=== PATIENT | male | born 1945 | race Caucasian/White ===

== ENCOUNTER 2020-12-29 11:49 | Inpatient (IN) | payer OTHER, MEDICAID, SELFPAY ==
[~2020-12-29] VITALS: Ht 170.2 cm; Wt 55.8 kg
--- NOTE | 2020-12-29 11:53 | NUR ---
PATIENT W/C ASSISTED TO BED 3
[2020-12-29 11:58] VITALS: BP 101/78
--- NOTE | 2020-12-29 12:07 | NUR ---
77 Y/O MALE BIB FAMILY CAREGIVER C/O GENERALIZED WEAKNESS, LETHARGY, N/V AND INCONTINENCE X1DAY. PER FAMILY, PT WAS FOUND AT HOME "NEARLY UNRESPONSIVE". PT WENT TO ED AT [facility] ON 12/22/20 FOR VERTIGO, HYPERGLYCEMIA AND WAS TREATED FOR BOTH. PT IS A/O X3. BLOOD SUGAR ON ARRIVAL 322. PT DENIES PAIN AT THIS TIME. NIH 0. PMH: DM NKA
--- NOTE | 2020-12-29 12:14 | NUR ---
Dr. Lane at pt bedside for further evaluation.
[2020-12-29] MEDS ORDERED: NACL 0.9% 2,000 ML IV ONE (12:20)
--- NOTE | 2020-12-29 12:26 | NUR ---
EMT at pt bedside for EKG.
--- NOTE | 2020-12-29 12:28 | NUR ---
Pt taken to CT via [facility].
--- NOTE | 2020-12-29 12:36 | NUR ---
Labs and cultures collected, gave to tech. Rebeka
[2020-12-29 12:38] LABS: BASOPHILS # (AUTO) 0.1 K/uL (0.00-0.22); BASOPHILS % (AUTO) 0.4 % (0.0-2.0); HEMATOCRIT 42.3 % (36-52); HEMOGLOBIN 14.3 g/dL (12.0-18.0); LYMPHOCYTES # (AUTO) 1.4 K/uL (2.0-11.5); LYMPHOCYTES % (AUTO) 7.1 % (20.5-51.1); MEAN CORPUSCULAR HEMOGLOBIN 33 pg (27-31); MEAN CORPUSCULAR HGB CONC 34 g/dL (33-37); MEAN CORPUSCULAR VOLUME 95.8 fL (80-94); MONOCYTES # (AUTO) 0.9 K/uL (0.8-1.0); MONOCYTES % (AUTO) 4.6 % (1.7-9.3); NEUTROPHILS # (AUTO) 17.8 K/uL (1.8-7.7); NEUTROPHILS % (AUTO) 87.9 % (42.2-75.2); PLATELET COUNT (AUTO) 299 K/uL (140-450); RED BLOOD CELL COUNT(AUTO) 4.42 MIL/uL (4.20-6.10); RED CELL DISTRIBUTION WIDTH 13.1 % (11.6-13.7); WHITE BLOOD COUNT (AUTO) 20.2 K/uL (4.8-10.8)
--- NOTE | 2020-12-29 12:41 | NUR ---
Pt brought back to ER bed 3 via mendel.
--- NOTE | 2020-12-29 12:43 | NUR ---
Spoke with pt family Juan for pt updates.
--- NOTE | 2020-12-29 12:46 | NUR ---
motorsports technician at pt bedside.
[2020-12-29 12:47] LABS: PROTHROMBIN TIME 9.6 secs (10.8-13.4)
[2020-12-29] MEDS ORDERED: PIPERACILLIN/TAZOBACTAM 3.375 GM in DEXTROSE 5% 50 ML IV ONE (12:50)
[2020-12-29] MEDS ORDERED: VANCOMYCIN PER PHARMACY MC PRN (12:50)
[2020-12-29] MEDS ORDERED: NACL 0.9% 1,000 ML IV ONE (12:50)
[2020-12-29] MEDS ORDERED: VANCOMYCIN 1GM/DEXT 5% PREMIX 200 ML IV ONE (12:50)
[2020-12-29] MEDS ORDERED: TRAM50TA1 PO (12:55)
[2020-12-29] MEDS ORDERED: MECL-303 PO (12:55)
[2020-12-29] MEDS ORDERED: METF500T PO (12:55)
[2020-12-29] MEDS ORDERED: PIPERACILLIN/TAZOBACTAM 3.375 GM VIAL IV ONE ×2 (12:58→21:55)
[2020-12-29 13:02] LABS: ALBUMIN 3.7 g/dL (3.4-5.0); ANION GAP 7.5 (8-16); ASPARTATE AMINOTRANSFERASE 16 U/L (15-37); CARBON DIOXIDE 30.9 mmol/L (21-32); CHLORIDE 98 mmol/L (98-107); CREATININE 1.2 mg/dL (0.6-1.3); GLUCOSE 324 mg/dL (74-106); MAGNESIUM 2.3 mg/dL (1.8-2.4); PHOSPHORUS 3.6 mg/dL (2.5-4.9); POTASSIUM 4.4 mmol/L (3.5-5.1); SODIUM SERUM 132 mmol/L (136-145); THYROID STIMULATING HORMONE 0.81 uIU/mL (0.34-3.74); UREA NITROGEN, BLOOD 15 mg/dL (7-18)
[2020-12-29] MEDS ORDERED: VANCOMYCIN 1,000 MG in DEXTROSE 5% 250 ML IV SCH (13:15)
--- NOTE | 2020-12-29 13:16 | NUR ---
Pt taken to CT via [facility].
[2020-12-29 13:21] LABS: SALICYLATE < 2.8 mg/dL (2.8-20.0)
--- NOTE | 2020-12-29 13:23 | NUR ---
Pt brought back from CT via [facility].
[2020-12-29] MEDS ORDERED: VANCOMYCIN 1,000 MG VIAL ONE (13:36)
[2020-12-29 13:41] LABS: ACETAMINOPHEN < 0.5 ug/ml (10-30)
[2020-12-29] MEDS ORDERED: DICYCLOMINE HCL LIQUID 10 MG/5 ML UDC ONE (14:12)
[2020-12-29] MEDS ORDERED: ALUMINUM HYD/MAG/SIMETHICONE 30 ML UDC ONE (14:12)
[2020-12-29] MEDS ORDERED: LIDOCAINE VISCOUS 2% 20 ML UDC ONE (14:12)
[2020-12-29] MEDS: DICYCLOMINE HCL LIQUID 20 MG, ALUMINUM HYD/MAG/SIMETHICONE 30 ML, LIDOCAINE VISCOUS 2% ... PO ONE ×6 (14:14→14:17)
--- NOTE | 2020-12-29 14:15 | NUR ---
16F SCHULTZ CATHETER PLACED AT THIS TIME WITH MODERATE AMOUNT OF YELLOW URINE REMOVED.
[2020-12-29] MEDS ORDERED: ACETAMINOPHEN 325 MG TAB PO PRN (14:40)
[2020-12-29] MEDS ORDERED: guaiFENesin DM 200/20 MG-10 ML 10 ML UDC PO PRN (14:40)
[2020-12-29] MEDS ORDERED: ZOLPIDEM 5 MG TAB PO PRN (14:40)
[2020-12-29] MEDS ORDERED: DOCUSATE SODIUM 100 MG GELCAP PO PRN (14:40)
[2020-12-29] MEDS ORDERED: ONDANSETRON 4 MG/2 ML VIAL IM/IVP PRN (14:40)
[2020-12-29] MEDS ORDERED: HYDROcodone/APAP 7.5/325 MG 1 TAB PO PRN (14:40)
[2020-12-29] MEDS ORDERED: POTASSIUM CHLORIDE 10 MEQ TABER PO PRN (14:40)
[2020-12-29] MEDS ORDERED: DEXTROSE 50% 50 ML SYR IVP PRN (14:45)
[2020-12-29] MEDS: NACL 0.9% 1,000 ML IV SCH (15:05)
[2020-12-29 15:20] LABS: CHOL/HDL RATIO 5.2 (1-4.5); FREE T4 (FREE THYROXINE) 0.99 ng/dL (0.76-1.46); MAGNESIUM 2.3 mg/dL (1.8-2.4); PHOSPHORUS 3.6 mg/dL (2.5-4.9); THYROID STIMULATING HORMONE 0.83 uIU/mL (0.34-3.74)
--- NOTE | 2020-12-29 15:39 | NUR ---
Collected UA sample via little using sterile technique, sent to lab.
--- NOTE | 2020-12-29 15:54 | NUR ---
Emptied 1000mL of clear yellow urine, no sediment noted.
--- NOTE | 2020-12-29 15:58 | NUR ---
NEERAJ PCR COLLECTED AND WALKED TO LAB.
[2020-12-29] MEDS: BLOOD GLUCOSE MONITORING 1 DEV DEV FS SCH ×2 (16:50→21:00)
[2020-12-29] MEDS: INSULIN LISPRO SLIDING SCALE 100 UNITS/ML VIAL SUBQ PRN (16:58)
[2020-12-29 17:49] LABS: APPEARANCE,URINE CLEAR (CLEAR); BILIRUBIN,URINE NEGATIVE (NEGATIVE); BLOOD, URINE NEGATIVE (NEGATIVE); COLOR,URINE YELLOW (YELLOW); LEUKOCYTE ESTERASE ,URINE NEGATIVE (NEGATIVE); NITRITE, URINE NEGATIVE (NEGATIVE); UGLUCOSE 3+ (NEGATIVE)
--- NOTE | 2020-12-29 17:53 | NUR ---
Emptied 700mL of clear odorless yellow urine, no sediment noted.
[2020-12-29 18:05] LABS: BARBITURATE, URINE NEGATIVE ng/ml (NEG <=200); BENZODIAZEPINE, URINE NEGATIVE ng/mL (NEG <=200); CANNABINOID, URINE NEGATIVE ng/mL (NEG <=50); COCAINE, URINE NEGATIVE ng/mL (NEG <=300); OPIATE, URINE NEGATIVE ng/mL (NEG <=2000); PHENCYCLIDINE SCREEN,URINE NEGATIVE ng/mL (NEG <=25)
--- NOTE | 2020-12-29 19:13 | NUR ---
Gave report to DANNI Thao, transfer of care at this time.
--- NOTE | 2020-12-29 19:20 | NUR ---
PATIENT VOMITTED PREVIOUSLY TAKEN FOOD, CLEANED AND DRESSED, IV WAS REMOVED AND PUT ON HIS RAC G 20 PATENT AND INFUSING WELL.
--- NOTE | 2020-12-29 19:30 | NUR ---
Patient will be admitted to care of DR JASMINA DENNISON. Admited to TELEMETRY. Will go to [id number]. Belongings list completed. Report to RAMON RAZO.
--- NOTE | 2020-12-29 20:00 | NUR ---
REPORT GIVEN TO RAMON RAZO.
[2020-12-29 20:10] VITALS: BP 134/65
--- NOTE | 2020-12-29 20:10 | NUR ---
RECEIVED PATIENT FROM ER NURSE VIA [facility] FOR CONTINUITY OF CARE. ALERT AND ABLE TO MAKE NEEDS KNOWN. RESPIRATIONS EVEN, UNLABORED. NO S/S RESPIRATORY DISTRESS. S1/S2 AUSCULTATED. SKIN ASSESSMENT COMPLETED. SKIN WARM, DRY AND INTACT. IV SITE TO RIGHT AC 20G PATENT/INTACT, INFUSING FLUIDS WELL. NO C/O PAIN. NO S/S ACUTE DISTRESS. ABDOMEN SOFT, NONTENDER, NONDISTENDED. BOWEL SOUNDS ACTIVE x4 QUADRANTS. PATIENT IS INCONTINENT. SCHULTZ CATHETER PATENT WITH YELLOW URINE DRAINING TO GRAVITY. MRSA SCREEN COMPLETED. PATIENT ORIENTED TO ROOM/STAFF AND CALL LIGHT. PLAN OF CARE DISCUSSED. SAFETY PRECAUTIONS IN PLACE. ISOLATION PRECAUTIONS OBSERVED BY ALL STAFF. CALL LIGHT WITHIN REACH AT ALL TIMES.
[2020-12-29] MEDS: PIPERACILLIN/TAZOBACTAM 3.375 GM in DEXTROSE 5% 50 ML IV SCH (21:00)
--- NOTE | 2020-12-29 21:30 | NUR ---
DUE MEDS GIVEN. PATIENT RESTING COMFORTABLY IN BED WATCHING TV. NO C/O PAIN. NO S/S ACUTE DISTRESS. CALL LIGHT WITHIN REACH AT ALL TIMES. SAFETY PRECAUTIONS IN PLACE. ISOLATION PRECAUTIONS OBSERVED.
--- NOTE | 2020-12-29 23:00 | NUR ---
CALLED GIRLFRIEND BARBARA ROJAS AND GRANDDAUGHTER DIANA VALERIO PER PATIENT'S REQUEST TO UPDATE THEM ON PATIENT'S CONDITION AND PLAN OF CARE.
[2020-12-30] VITALS: BP 137/74
--- NOTE | 2020-12-30 00:23 | NUR ---
RN MADE MIDNIGHT ROUND, PATIENT WAS CALMLY ASLEEP.
--- NOTE | 2020-12-30 01:00 | NUR ---
MADE ROUNDS. PATIENT IS ASLEEP. NO S/S ACUTE DISTRESS. SAFETY PRECAUTIONS IN PLACE. ISOLATION PRECAUTIONS OBSERVED. CALL LIGHT WITHIN REACH.
--- NOTE | 2020-12-30 03:00 | NUR ---
PATIENT IS ASLEEP. NO S/S ACUTE DISTRESS. CALL LIGHT WITHIN REACH. SAFETY PRECAUTIONS IN PLACE. ISOLATION PRECAUTIONS OBSERVED.
[2020-12-30] MEDS: NACL 0.9% 1,000 ML IV SCH ×2 (03:10→16:26)
[2020-12-30 04:00] VITALS: BP 104/43
[2020-12-30] MEDS ORDERED: PIPERACILLIN/TAZOBACTAM 3.375 GM VIAL IV ONE (04:33)
[2020-12-30] MEDS: PIPERACILLIN/TAZOBACTAM 3.375 GM in DEXTROSE 5% 50 ML IV SCH ×3 (04:34→22:42)
--- NOTE | 2020-12-30 05:00 | NUR ---
DUE MEDS GIVEN. NO C/O PAIN. NO S/S ACUTE DISTRESS. CALL LIGHT WITHIN REACH. SAFETY PRECAUTIONS IN PLACE. ISOLATION PRECAUTIONS OBSERVED.
[2020-12-30] MEDS: BLOOD GLUCOSE MONITORING 1 DEV DEV FS SCH ×4 (06:32→21:00)
[2020-12-30 06:52] LABS: BASOPHILS # (AUTO) 0.1 K/uL (0.00-0.22); BASOPHILS % (AUTO) 0.5 % (0.0-2.0); EOSINOPHILS # (AUTO) 0.1 K/uL (0-0.4); EOSINOPHILS % (AUTO) 0.8 % (0.0-4.0); HEMATOCRIT 36.6 % (36-52); HEMOGLOBIN 12.4 g/dL (12.0-18.0); LYMPHOCYTES # (AUTO) 2.6 K/uL (2.0-11.5); MEAN CORPUSCULAR HEMOGLOBIN 32 pg (27-31); MEAN CORPUSCULAR HGB CONC 34 g/dL (33-37); MEAN CORPUSCULAR VOLUME 95.1 fL (80-94); MONOCYTES # (AUTO) 0.7 K/uL (0.8-1.0); MONOCYTES % (AUTO) 5.4 % (1.7-9.3); NEUTROPHILS # (AUTO) 10.1 K/uL (1.8-7.7); NEUTROPHILS % (AUTO) 74.3 % (42.2-75.2); PLATELET COUNT (AUTO) 260 K/uL (140-450); RED BLOOD CELL COUNT(AUTO) 3.85 MIL/uL (4.20-6.10); RED CELL DISTRIBUTION WIDTH 12.9 % (11.6-13.7); WHITE BLOOD COUNT (AUTO) 13.5 K/uL (4.8-10.8)
[2020-12-30 06:56] LABS: ANION GAP 11.3 (8-16); CARBON DIOXIDE 29.7 mmol/L (21-32); CHLORIDE 102 mmol/L (98-107); GLUCOSE 140 mg/dL (74-106); SODIUM SERUM 139 mmol/L (136-145); UREA NITROGEN, BLOOD 12 mg/dL (7-18)
[2020-12-30 07:07] LABS: T4 (THYROXINE) 7.6 ug/dL (4.5-12.0)
--- NOTE | 2020-12-30 07:15 | NUR ---
ENDORSED PATIENT TO AM SHIFT NURSE FOR CONTINUITY OF CARE.
--- NOTE | 2020-12-30 07:20 | NUR ---
RECEIVED BEDSIDE ENDORSEMENT FROM NIGHTSILFT NURSE FOR CONTINUITY OF CARE.
[2020-12-30 08:00] VITALS: BP 137/70
--- NOTE | 2020-12-30 08:39 | NUR ---
PATIENT HAS BEEN SCREENED AND CATEGORIZED MODERATE NUTRITION RISK. PATIENT WILL BE SEEN WITHIN 3-5 DAYS OF ADMISSION. 01/01/21 01/03/[address]
[2020-12-30] MEDS: PANTOPRAZOLE 40 MG TABEC PO SCH (09:21)
[2020-12-30] MEDS: metFORMIN 500 MG TAB PO SCH (09:22)
[2020-12-30] MEDS: ATORVASTATIN 20 MG TAB PO SCH (09:22)
--- NOTE | 2020-12-30 09:41 | NUR ---
ADMINISTERED PRESCRIBED MEDS PER MD ORDER. PATIENT TOLERATED WELL. MEDICATION EDUCATION PROVIDED. PATIENT VERBALIZED UNDERSTANDING. PATIENT PROVIDED BREAKFAST TRAY, SITTING UPRIGHT IN BED WATCHING TELEVISION. DENIES PAIN, ABLE TO MAKE NEEDS KNOWN. NO SIGNS OF DISTRESS OR DISCOMFORT. LUNG SOUNDS CLEAR, NO EDEMA. SAFETY MEASURES IN PLACE. WILL CONTINUE TO MONITOR.
--- NOTE | 2020-12-30 09:47 | NUR ---
RECEIVED PHONE CALL FROM PATIENT GIRLFRIEND BARBARA. PROVIDED UPDATE, ASSISTED PATIENT W/ ROOM PHONE FOR PERSONAL CALLS.
--- NOTE | 2020-12-30 10:21 | NUR ---
SOCIAL WORK NOTE: Patient's Orientation Unable To Assess Information Provided By DIANA VALERIO - GRANDDAUGHTER Comments SW WAS UNABLE TO MEET PATIENT AT BEDSIDE. SW COMPLETED ASSESSMENT WITH PATIENT'S GRANDDAUGHTER. Router Tender, Realtionship and Phone Number DIANA VALERIO GRANDDAUGHTER [phone] BARBARA ROJAS SIGNIFICANT OTHER [phone] Healthcare Power of Department Operations Manager No Does Patient Have a POLST No Identifying Problems No Social Work Triggers Is A Social Work Consult Needed No Mandate Report Filed No Explanation Of Identifying Problems PATIENT IS A 75-YEAR-OLD MALE ADMITTED FOR GENERAL WEAKNESS AND SEPSIS. PATIENT HAS PMHX OF DIABETES. GRANDDAUGHTER REPORTED NO HX OF MENTAL HEALTH OR SUBSTANCE ABUSE. Admitted From Home Pre-Admission Level Of Functioning Status Independent/Ambulatory Prior Resources/Services Used In Last 12 Months No Prior Resources Used Prior DME No Prior DME Used Dialysis Comments N/A Living Situation Lives Alone Mobile Home Patient Had Caregiver No Home Support No Caregiver Issues Financial Issues No Known Financial Issue Referral To The Financial Counselor Needed No Factors/Needs No D/C Needs Identified Pt/Rep Participated In Discharge Plan Yes Patient/Family Agress With Discharge Plan Yes Discharge Plan Comments TENTATIVE DISCHARGE PLAN IS FOR PATIENT TO RETURN HOME. DC Plan Status Initiated
--- NOTE | 2020-12-30 11:18 | NUR ---
HOURLY ROUNDING PERFORMED. PATIENT SLEEPING IN BED. DENIES PAIN/DISCOMFORT. ADJUSTED THERMOSTAT FOR WARMTH. DISCARDED BREAKFAST TRAY. SAFETY MEASURES IN PLACE. WILL CONTINUE TO MONITOR.
[2020-12-30 12:00] VITALS: BP 130/67
--- NOTE | 2020-12-30 12:05 | NUR ---
ADMINISTERED PRESCRIBED MEDS PER MD ORDER. PATIENT SLEEPING IN BED, DENIES PAIN/DISCOMFORT. SAFETY MEASURES IN PLACE. WILL CONTINUE TO MONITOR.
--- NOTE | 2020-12-30 12:50 | NUR ---
ADMINISTERED PRN INSULIN FOR BLOOD SUGAR 258. PATIENT LUNCH TRAY DELIVERED AND AT BEDSIDE. ASSISTED PATIENT W/ TELEVISION SET UP. SAFETY MEASURES IN PLACE. WILL CONTINUE TO MONITOR
--- NOTE | 2020-12-30 13:02 | NUR ---
DC PLANNIN YRS OLD MALE PATIENT WAS ADMITTED FROM HOME WITH A DX OF GENERAL WEAKNESS ,SEPSIS. PT HAS A HX OF DIABETES. CXR SHOWED RT LUNG BASE INFILTRATES, CT HEAD NO BLEED , CT CHEST SHOWED, CAD ,BILATERAL PULMONARY INFILTRATES. RAPID COVID TEST NEGATIVE, PCR IS PENDING. ADMINISTERED IVF, IV ABX ZOSYN AND CONTINUED HOME MEDS. CONSULTED WITH PULMO . DC PLAN TO GO HOME WHEN STABLE CM TO FOLLOW Addendum: 12/31/20 at 1503 by Luna Little RN DC PLANNING: PT HAS AN ORDER FOR SNF, PT AGREED AND CALLED PT'S GRAND DAUGHTER DIANA [phone] SHE AGREED WELL, SHE WILL BE OK AROUND THE AREA. FAXED TO [facility] , [facility]ATY AND [facility] BARROSO. CM TO FOLLOW Addendum: 01/01/21 at 1058 by Ellen Guaman CM DC FINANCIAL SALES MANAGER: RHEA CERON [facility] IS ABLE TO ACCEPT PATIENT. ROOM 9C. PER RHEA THEY WILL ACCEPT BILL FOR TRANSPORTATION, SHE ASKS THAT WE ARRANGE IT WITH [facility] [phone]. Addendum: 01/01/21 at 1223 by Ellen Guaman CM MAGDA FINANCIAL SALES MANAGER: ARRANGED TRANSPORTATION WITH [facility] [phone]. CORE LAYER MACHINE OPERATOR TIME IS BETWEEN 3:00PM-4:00PM [facility] [phone] ROOM [address]C [address] [place] [address] Addendum: 01/01/21 at 1230 by Ellen Guaman CM MAGDA VELASQUEZ: NOTIFIED DANNI GARCIA AND SPOKE TO PATIENTS GRANDDAUGHTER DIANA TO NOTIFY HER OF DISCHARGE.
--- NOTE | 2020-12-30 14:22 | NUR ---
HOURLY ROUNDING PERFORMED. PATIENT SLEEPING IN BED. VISIBLE RISE AND FALL OF CHEST. DISCARDED REMAINING LUNCH TRAY COMPONENTS. SAFETY MEASURES IN PLACE. WILL CONTINUE TO MONITOR.
[2020-12-30 16:00] VITALS: BP 146/69
--- NOTE | 2020-12-30 17:37 | NUR ---
HOURLY ROUNDING PERFORMED. PATIENT IS RESTING IN BED. VITAL SIGNS OBTAINED, PROVIDED PATIENT W/ CLEAN WARM BLANKETS. DENIES PAIN. SAFETY MEASURES IN PLACE. WILL CONTINUE TO MONITOR.
--- NOTE | 2020-12-30 19:33 | NUR ---
ENDORSED PATIENT TO NIGHTSHIFT NURSE FOR CONTINUITY OF CARE.
--- NOTE | 2020-12-30 19:57 | NUR ---
PATIENT WAS RECEIVED IN BED ALERT AND COHERENT, GF CALLED TO GET AN UPDATE REPORT REGARDING HER BF, EXTENDING HER LOVE TO THE PATIENT.
[2020-12-30 20:00] VITALS: BP 145/74
--- NOTE | 2020-12-30 21:19 | NUR ---
MADE ROUND TO RELAY THE MESSAGE OF PATIENT'S GF, IV HYDRATION FLUID NSS WAS REPLACED WITH NEW BAG.
--- NOTE | 2020-12-30 21:30 | NUR ---
RN DO RANGEL [id number], COVERED WITH REGULAR INSULIN PER SLIDING SCALE., IV ZOSYN 3.375 GMS WAS ADMINISTERED TOLERATING WELL
[2020-12-30] MEDS: INSULIN LISPRO SLIDING SCALE 100 UNITS/ML VIAL SUBQ PRN (22:47)
[2020-12-31] VITALS: BP 112/55
--- NOTE | 2020-12-31 02:24 | NUR ---
RN MADE ROUNDS, PATIENT REQUESTED WARM BLANKET, HE SAID HE FEELS COLD.
[2020-12-31 04:00] VITALS: BP 111/53
[2020-12-31] MEDS: NACL 0.9% 1,000 ML IV SCH ×2 (05:09→16:56)
[2020-12-31] MEDS: PIPERACILLIN/TAZOBACTAM 3.375 GM in DEXTROSE 5% 50 ML IV SCH ×3 (05:10→21:56)
[2020-12-31 06:31] LABS: ANION GAP 10.3 (8-16); CARBON DIOXIDE 29.3 mmol/L (21-32); CHLORIDE 104 mmol/L (98-107); GLUCOSE 126 mg/dL (74-106); POTASSIUM 4.6 mmol/L (3.5-5.1); SODIUM SERUM 139 mmol/L (136-145); UREA NITROGEN, BLOOD 11 mg/dL (7-18)
[2020-12-31 06:32] LABS: BASOPHILS # (AUTO) 0.1 K/uL (0.00-0.22); BASOPHILS % (AUTO) 0.8 % (0.0-2.0); EOSINOPHILS # (AUTO) 0.1 K/uL (0-0.4); EOSINOPHILS % (AUTO) 1.1 % (0.0-4.0); HEMATOCRIT 36.5 % (36-52); HEMOGLOBIN 12.6 g/dL (12.0-18.0); LYMPHOCYTES # (AUTO) 2.3 K/uL (2.0-11.5); LYMPHOCYTES % (AUTO) 21.4 % (20.5-51.1); MEAN CORPUSCULAR HEMOGLOBIN 33 pg (27-31); MEAN CORPUSCULAR HGB CONC 35 g/dL (33-37); MONOCYTES # (AUTO) 0.6 K/uL (0.8-1.0); MONOCYTES % (AUTO) 5.9 % (1.7-9.3); NEUTROPHILS # (AUTO) 7.7 K/uL (1.8-7.7); NEUTROPHILS % (AUTO) 70.8 % (42.2-75.2); PLATELET COUNT (AUTO) 268 K/uL (140-450); RED BLOOD CELL COUNT(AUTO) 3.84 MIL/uL (4.20-6.10); RED CELL DISTRIBUTION WIDTH 13.2 % (11.6-13.7); WHITE BLOOD COUNT (AUTO) 10.9 K/uL (4.8-10.8)
[2020-12-31] MEDS: BLOOD GLUCOSE MONITORING 1 DEV DEV FS SCH ×4 (06:56→21:27)
--- NOTE | 2020-12-31 07:38 | NUR ---
UY=[id number], NO COVERAGE GIVEN. ALL REPORTS AND RECOMMENDATIONS GIVEN, ENDORSED TO IN COMING RN.
--- NOTE | 2020-12-31 07:40 | NUR ---
RECEIVED BEDSIDE ENDORSEMENT FROM NIGHTSCTFT NURSE FOR CONTINUITY OF CARE.
[2020-12-31 08:00] VITALS: BP 154/71
[2020-12-31] MEDS: ATORVASTATIN 20 MG TAB PO SCH (08:26)
[2020-12-31] MEDS: metFORMIN 500 MG TAB PO SCH (08:27)
[2020-12-31] MEDS: PANTOPRAZOLE 40 MG TABEC PO SCH (08:27)
--- NOTE | 2020-12-31 08:33 | NUR ---
ADMINISTERED PRESCRIBED MEDS PER MD ORDER. PATIENT TOLERATED WELL. MEDICATION EDUCATION PROVIDED. PATIENT VERBALIZED UNDERSTANDING. PATIENT AWAKE AND ALERT. ABLE TO MAKE NEEDS KNOWN. RESPIRATIONS EVEN AND UNLABORED. NO SIGNS OF DISTRESS. LUNG SOUNDS CLEAR. SAFETY MEASURES IN PLACE. WILL CONTINUE TO MONITOR.
[2020-12-31] MEDS: INSULIN LISPRO SLIDING SCALE 100 UNITS/ML VIAL SUBQ PRN ×3 (12:31→21:29)
--- NOTE | 2020-12-31 12:36 | NUR ---
ADMINISTERED PRN INSULIN FOR BLOOD SUGAR OF 228. PATIENT TOLERATED WELL. LUNCH TRAY DELIVERED AND AT BEDSIDE. PATIENT IS ALERT AND ORIENTED. ABLE TO MAKE NEEDS KNOWN. SAFETY MEASURES IN PLACE. WILL CONTINUE TO MONITOR.
[2020-12-31 16:00] VITALS: BP 137/65
--- NOTE | 2020-12-31 18:10 | NUR ---
PT WAS SEEN FOR DYSPHAGIA. PT W ABLE TO SAFELY SWALLOW MS DIET WITH THIN LIQUID WITHOUT S/S OF ASPIRATION. RECOMMENDATION MS DIET WITH THIN LIQUID
--- NOTE | 2020-12-31 19:26 | NUR ---
BEDSIDE ENDORSEMENT TO NIGHTSHIFT NURSE FOR CONTINUITY OF CARE
--- NOTE | 2020-12-31 19:27 | NUR ---
RECD. RESTING IN BED, COMFORTABLY SLEEPING. EASILY AROUSABLE, A/OX4. RESPIRATION EVEN AND UNLABORED. IV OF NS INFUSING AT 80 ML/HR AT THE LEFT FOREARM G22. F/C PATENT DRAINING CLEAR YELLOW URINE. SAFETY MEASURES ENFORCED. BED IN THE LOWEST POSITION, CALL LIGHT IN REACH. INSTRUCTED TO CALL NURSE WHENEVER NEEDING HELP. MEDICATIONS AND CARE FOR THE SHIFT DISCUSSED. VERBALIZED UNDERSTANDING. DENIES PAIN 0/10.
--- NOTE | 2020-12-31 20:00 | NUR ---
Patient's Plan of Care was discussed and reviewed with ALLOY WEIGHER: YOAV BURCIAGA
--- NOTE | 2020-12-31 21:27 | NUR ---
BLOOD SUGAR CHECKED - 228. SLIDING SCALE COVERAGE GIVEN. ATE 100% OF SNACK FOR THE NIGHT.
--- NOTE | 2021-01-01 | NUR ---
SLEEPING COMFORTABLY IN BED.
--- NOTE | 2021-01-01 02:00 | NUR ---
SLEEPING SUPINE IN BED, WARM BLANKETS GIVEN.
[2021-01-01 04:00] VITALS: BP 125/56
--- NOTE | 2021-01-01 04:00 | NUR ---
RESPIRATION EVEN AND UNLABORED, STILL COMFORTABLY SLEEPING.
[2021-01-01] MEDS: NACL 0.9% 1,000 ML IV SCH (05:10)
[2021-01-01] MEDS: PIPERACILLIN/TAZOBACTAM 3.375 GM in DEXTROSE 5% 50 ML IV SCH ×2 (05:25→12:38)
--- NOTE | 2021-01-01 05:26 | NUR ---
SCHEDULE MEDICATION GIVEN ORDERED. EDUCATION GIVEN, PATIENT VERBALIZED UNDERSTANDING. NO SIGN OF DISTRESS NOTED. PRECAUTION IN PLACE. CALL LIGHT WITHIN REACH. WILL CONTINUE TO MONITOR.
[2021-01-01 06:36] LABS: BASOPHILS # (AUTO) 0.1 K/uL (0.00-0.22); BASOPHILS % (AUTO) 0.6 % (0.0-2.0); EOSINOPHILS # (AUTO) 0.1 K/uL (0-0.4); EOSINOPHILS % (AUTO) 0.7 % (0.0-4.0); HEMATOCRIT 34.4 % (36-52); HEMOGLOBIN 11.7 g/dL (12.0-18.0); LYMPHOCYTES # (AUTO) 1.7 K/uL (2.0-11.5); LYMPHOCYTES % (AUTO) 13.3 % (20.5-51.1); MEAN CORPUSCULAR HEMOGLOBIN 32 pg (27-31); MEAN CORPUSCULAR HGB CONC 34 g/dL (33-37); MEAN CORPUSCULAR VOLUME 94.6 fL (80-94); MONOCYTES # (AUTO) 0.9 K/uL (0.8-1.0); MONOCYTES % (AUTO) 7.2 % (1.7-9.3); NEUTROPHILS # (AUTO) 10.1 K/uL (1.8-7.7); NEUTROPHILS % (AUTO) 78.2 % (42.2-75.2); PLATELET COUNT (AUTO) 256 K/uL (140-450); RED BLOOD CELL COUNT(AUTO) 3.63 MIL/uL (4.20-6.10); RED CELL DISTRIBUTION WIDTH 13.1 % (11.6-13.7)
[2021-01-01] MEDS: BLOOD GLUCOSE MONITORING 1 DEV DEV FS SCH ×2 (06:50→11:29)
[2021-01-01] MEDS: INSULIN LISPRO SLIDING SCALE 100 UNITS/ML VIAL SUBQ PRN ×2 (06:51→11:34)
[2021-01-01 07:13] LABS: ANION GAP 7.9 (8-16); CARBON DIOXIDE 30.5 mmol/L (21-32); CHLORIDE 101 mmol/L (98-107); GLUCOSE 225 mg/dL (74-106); POTASSIUM 4.4 mmol/L (3.5-5.1); SODIUM SERUM 135 mmol/L (136-145); UREA NITROGEN, BLOOD 10 mg/dL (7-18)
--- NOTE | 2021-01-01 07:15 | NUR ---
ENDORSED TO AM SHIFT NURSE FOR CONTINUITY OF CARE.
--- NOTE | 2021-01-01 07:16 | NUR ---
RECEIVED ENDORSEMENT FROM ROTARY PUMP OPERATOR RN PT IS RESTING IN BED NO DISTRESS.
[2021-01-01 08:00] VITALS: BP 122/56
[2021-01-01] MEDS: PANTOPRAZOLE 40 MG TABEC PO SCH (09:31)
[2021-01-01] MEDS: ATORVASTATIN 20 MG TAB PO SCH (09:31)
[2021-01-01] MEDS: metFORMIN 500 MG TAB PO SCH (09:31)
--- NOTE | 2021-01-01 09:40 | NUR ---
SCHEDULED MEDICATIONS GIVEN TOLERATED WELL PT IS DELAYED WITH SLOW TO RESPOND AND MOVE. PT ADMIT WITH GEN WEAK WHICH PERSIST. PT DENIES ANY DISTRESS AT THIS TIME. LUNG SOUNDS DIMINISHED ABD IS FLAT, SOFT AND NONTENDER WITH ACTIVE BS X 4. SKIN INTACT. HAS IV ACCESS TO LEFT FOREARM THAT IS INTACT AND PATENT. REQUIRES ASSISTANCE WITH MOVEMENT. HAS SCHULTZ CATH IN PLACE DRAINING CLEAR YELLOW URINE. SAFETY MEASURES IN PLACE. ALL NEEDS MET AT THIS TIME.
--- NOTE | 2021-01-01 10:32 | NUR ---
RESTING IN BED ALL NEEDS MET.
[2021-01-01] MEDS ORDERED: DOCU-299 PO (11:54)
[2021-01-01] MEDS ORDERED: CEFU500T73 PO (11:54)
[2021-01-01] MEDS ORDERED: LACT-2 (11:54)
[2021-01-01] MEDS ORDERED: ATOR20TA40 PO (11:54)
--- NOTE | 2021-01-01 12:25 | NUR ---
BS 204 4UNITS OF COVERAGE GIVEN PER SLIDING SCALE.
--- NOTE | 2021-01-01 14:40 | NUR ---
PROVISION OF CARE PROVIDED. SCHULTZ CATH REMOVED PER MD ORDER OFFERED URINAL NO URINE AT THIS TIME.
[2021-01-01 14:55] VITALS: BP 122/56
--- NOTE | 2021-01-01 15:30 | NUR ---
PT DISCHARGED AT THIS TIME WITH ALL BELONGINGS AND WITH DISCHARGE INSTRUCTIONS. INSTRUCTIONS GIVEN TO [facility] TAHIR RAZO. PT AWAKE AND AWARE. ABLE TO COMMUNICATE EFFECTIVELY. CONTINUES TO HAVE UNSTEADY AND GENERALIZED WEAKNESS. PT VOIDED X 1 S/P CATH REMOVAL.
== END 2021-01-01 15:57 | DRG 871 ==
LOC: MED 11:49 → MTU 14:57
PROVIDERS: ADMIT Family Medicine; ATTEND Family Medicine
DX: A41.9 Sepsis, unspecified organism (principal); J69.0 Pneumonitis due to inhalation of food and vomit; G93.41 Metabolic encephalopathy; E46 Unspecified protein-calorie malnutrition; Z68.1 Body mass index [BMI] 19.9 or less, adult; E87.1 Hypo-osmolality and hyponatremia; N13.30 Unspecified hydronephrosis; Z20.822 Contact with and (suspected) exposure to COVID-19; E11.9 Type 2 diabetes mellitus without complications; Z90.49 Acquired absence of other specified parts of digestive tract; R62.7 Adult failure to thrive
CPT/HCPCS: 36415; 70450; 71045; 71250; 80048; 80053; 80305; 81003; 82150; 82550; 82948; 83036; 83605; 83690; 83735; 83880; 84100; 84436; 84439; 84443; 84479; 84484; 85025; 85610; 87040; 87081; 92610; 93005; 96361; 96365; 96367; 97110; 97163-GP; 99291; G0480; G0482; J1815; J2543; J3370; J7030; J7060; U0003